=== PATIENT | female | born 1985 | race Two or more races ===

== ENCOUNTER 2020-05-31 13:07 | Emergency (ER) | payer MEDICAID ==
[~2020-05-31] VITALS: Ht 157.5 cm; Wt 45.4 kg
[2020-05-31] MEDS ORDERED: SODIUM CHLORIDE 0.9% 1,000 ML IV ONE ×2 (13:45)
[2020-05-31 14:20] LABS: Basophils # (auto) 0.1 10 ^3/uL (0-0.2); Basophils % (auto) 0.7 % (0.0-2.0); Eosinophils # (auto) 0.1 10 ^3/uL (0-0.8); Eosinophils % (auto) 0.9 % (0.0-7.0); Hematocrit 40.5 % (36.0-46.0); Hemoglobin 13.4 g/dL (12.2-16.2); Lymphocytes # (auto) 0.9 10 ^3/uL (0.4-5.4); Lymphocytes % (auto) 10.8 % (10.0-50.0); Mean Corpuscular Hemoglobin 29.1 pg (28.0-32.0); Mean Corpuscular Volume 88.2 fL (80.0-100.0); Monocytes % (auto) 12.5 % (0.0-12.0); Neutrophils # (auto) 5.9 10 ^3/uL (1.6-8.6); Neutrophils % (auto) 75.1 % (37.0-80.0); Nucleated Red Blood Cells % 0.2 %; Platelet Count (auto) 281 10^3/uL (140-450); Red Blood Cells 4.59 10^6/uL (4.0-5.20); Red Cell Distribution Width 18.7 % (11.8-14.3); White Blood Cell 7.9 10^3/uL (4.4-10.8)
[2020-05-31 14:36] LABS: Albumin 4.7 g/dL (3.4-5.0); BUN/Creatinine Ratio 7.1; Calcium 10.1 mg/dL (8.5-10.1); Potassium 3.1 mmol/L (3.5-5.1)
[2020-05-31 14:48] LABS: Bilirubin, Total 0.7 mg/dL (0.2-1.0); Total Protein 9.5 g/dL (6.4-8.2)
[2020-05-31] MEDS ORDERED: POTASSIUM EFFERVESENT TAB 25 MEQ PO ONE (15:00)
[2020-05-31] MEDS ORDERED: ONDANSETRON HCL 4 MG/2 ML VIAL ONE (15:04)
[2020-05-31] MEDS ORDERED: ONDANSETRON HCL 4 MG/2 ML VIAL IV ONE (15:15)
[2020-05-31 16:45] LABS: Urine Bacteria FEW /hpf (None Seen); Urine Blood 3+ /uL (Negative); Urine Hyaline Cast MANY /lpf (0 - 2); Urine Mucus FEW (None Seen); Urine WBC 318 /hpf (0 - 5); Urine WBC Clumps PRESENT /hpf (None Seen)
[2020-05-31 18:06] LABS: Amphetamine Screen, Urine NEGATIVE (NEGATIVE); Barbiturate Scree,Urine NEGATIVE (NEGATIVE); Benzodiazephine Screen, Urine NEGATIVE (NEGATIVE); Cannabinoid Screen, Urine NEGATIVE (NEGATIVE); Cocaine Screen, Urine NEGATIVE (NEGATIVE); Opiate Scree,Urine NEGATIVE (NEGATIVE); Phencyclidine Screen, Urine NEGATIVE (NEGATIVE)
[2020-05-31 18:11] VITALS: BP 105/76
== END 2020-05-31 18:44 | disposition home or self-care (01) ==
LOC: ER 13:07
DX: K52.9 Noninfective gastroenteritis and colitis, unspecified (principal); N39.0 Urinary tract infection, site not specified; E87.6 Hypokalemia; E86.0 Dehydration
CPT/HCPCS: 36415; 74176; 80053; 80307; 80320; 81001; 85025; 96361; 96374; 99284; J2405

== ENCOUNTER 2020-07-15 20:03 | Inpatient (IN) | payer MEDICAID ==
[~2020-07-15] VITALS: Ht 157.5 cm; Wt 50.2 kg
[2020-07-15] MEDS ORDERED: ONDANSETRON HCL 4 MG/2 ML VIAL IV ONE (20:45)
[2020-07-15] MEDS ORDERED: SODIUM CHLORIDE 0.9% 1,000 ML IV ONE (20:45)
[2020-07-15 22:09] LABS: Eosinophils # (auto) 0.1 10 ^3/uL (0-0.8); Hemoglobin 11.3 g/dL (12.2-16.2); Lymphocytes # (auto) 1.7 10 ^3/uL (0.4-5.4); Mean Corpuscular Hgb Conc. 32.4 g/dL (32.0-36.0)
[2020-07-15 22:11] LABS: Basophils # (auto) 0 10 ^3/uL (0-0.2); Basophils % (auto) 0.3 % (0.0-2.0); Eosinophils % (auto) 0.9 % (0.0-7.0); Hematocrit 34.8 % (36.0-46.0); Lymphocytes % (auto) 14.5 % (10.0-50.0); Mean Corpuscular Hemoglobin 27.9 pg (28.0-32.0); Mean Corpuscular Volume 86.2 fL (80.0-100.0); Monocytes % (auto) 8.2 % (0.0-12.0); Neutrophils # (auto) 8.8 10 ^3/uL (1.6-8.6); Neutrophils % (auto) 76.1 % (37.0-80.0); Nucleated Red Blood Cells % 0.3 %; Platelet Count (auto) 498 10^3/uL (140-450); Red Blood Cells 4.03 10^6/uL (4.0-5.20); White Blood Cell 11.6 10^3/uL (4.4-10.8)
[2020-07-15 22:16] LABS: Red Cell Distribution Width 21.5 % (11.8-14.3)
[2020-07-15 22:37] LABS: Albumin 3.3 g/dL (3.4-5.0); BUN/Creatinine Ratio 16.3; Bilirubin, Total 1.4 mg/dL (0.2-1.0); Total Protein 8.7 g/dL (6.4-8.2)
[2020-07-15 22:42] LABS: Potassium 2.5 mmol/L (3.5-5.1)
[2020-07-16] MEDS ORDERED: SODIUM CHLORIDE 0.9% 1,000 ML IV ONE
[2020-07-16] MEDS ORDERED: IOHEXOL 300 MG/ML 100ML BOTTLE IJ ONE (00:10)
[2020-07-16] MEDS ORDERED: POTASSIUM CHL 20MEQ/100ML 100 ML IV ONE (00:15)
[2020-07-16] MEDS ORDERED: POTASSIUM EFFERVESENT TAB 25 MEQ PO ONE (00:15)
[2020-07-16] MEDS ORDERED: DOXYCYCLINE 100MG/250ML 250 ML IV ONE (02:15)
[2020-07-16] MEDS ORDERED: DexAMETHasone SOD PHOS 10MG/1ML VIAL INJ IV ONE (02:15)
[2020-07-16 03:12] LABS: Urine Bacteria FEW /hpf (None Seen); Urine Blood Negative /uL (Negative); Urine Hyaline Cast FEW /lpf (0 - 2); Urine Specific Gravity 1.036 (1.001-1.035); Urine WBC 36 /hpf (0 - 5)
[2020-07-16 06:22] LABS: Lactic Acid w/Reflex 2.5 mmol/L (0.4-2.0)
[2020-07-16 06:32] LABS: Lipase 45 U/L (73-393)
[2020-07-16] MEDS ORDERED: NITROGLYCERIN 0.4 MG SL TAB SL PRN (06:45)
[2020-07-16] MEDS ORDERED: ONDANSETRON HCL 4 MG/2 ML VIAL IV PRN (06:45)
[2020-07-16] MEDS ORDERED: MORPHINE SULF INJ 2 MG/ML SYRINGE 1ML IV PRN (06:45)
[2020-07-16] MEDS ORDERED: TEMAZEPAM 15 MG CAP PO PRN (06:45)
[2020-07-16] MEDS ORDERED: SODIUM CHLORIDE 0.9% 1,000 ML IV SCH (06:45)
[2020-07-16] MEDS ORDERED: SODIUM CHLORIDE 0.9% 500 ML IV ONE (06:45)
[2020-07-16 07:39] LABS: Alcohol, Urine < 3.0 mg/dL (0-10); Amphetamine Screen, Urine NEGATIVE (NEGATIVE); Barbiturate Scree,Urine NEGATIVE (NEGATIVE); Benzodiazephine Screen, Urine NEGATIVE (NEGATIVE); Cannabinoid Screen, Urine NEGATIVE (NEGATIVE); Cocaine Screen, Urine NEGATIVE (NEGATIVE); Opiate Scree,Urine NEGATIVE (NEGATIVE); Phencyclidine Screen, Urine NEGATIVE (NEGATIVE)
[2020-07-16] MEDS ORDERED: cefTRIAXone 1GM/50ML D5W 50 ML IV SCH (09:00)
[2020-07-16 09:30] VITALS: BP 134/90
[2020-07-16] MEDS ORDERED: FAMOTIDINE 20 MG TAB PO SCH (10:00)
[2020-07-16 13:00] VITALS: BP 138/92
[2020-07-16] MEDS: SODIUM CHLORIDE 0.9% 1,000 ML IV SCH (14:45)
[2020-07-16] MEDS ORDERED: PANTOPRAZOLE 40 MG/10 ML VIAL INJ IV ONE (14:45)
[2020-07-16 14:53] VITALS: BP 138/92
[2020-07-16 15:24] LABS: BUN/Creatinine Ratio 14.9; Calcium 7.3 mg/dL (8.5-10.1); Potassium 3.1 mmol/L (3.5-5.1)
[2020-07-16] MEDS ORDERED: NICOTINE 14 MG/24HR TOPICAL PATCH TD ONE (15:30)
[2020-07-16 16:58] VITALS: BP 139/98
[2020-07-16 20:00] VITALS: BP 138/99
[2020-07-16] MEDS: PANTOPRAZOLE 40 MG/10 ML VIAL INJ IV SCH (21:26)
[2020-07-16 22:00] VITALS: BP 138/99
[2020-07-17 05:00] VITALS: BP 133/96
[2020-07-17] MEDS: SODIUM CHLORIDE 0.9% 1,000 ML IV SCH (05:03)
[2020-07-17 06:22] LABS: Basophils # (auto) 0 10 ^3/uL (0-0.2); Basophils % (auto) 0.1 % (0.0-2.0); Eosinophils # (auto) 0.1 10 ^3/uL (0-0.8); Eosinophils % (auto) 0.5 % (0.0-7.0); Monocytes # (auto) 1.1 10 ^3/uL (0-1.3)
[2020-07-17 06:25] LABS: Hematocrit 23.9 % (36.0-46.0); Hemoglobin 7.9 g/dL (12.2-16.2); Lymphocytes # (auto) 2.2 10 ^3/uL (0.4-5.4); Lymphocytes % (auto) 20.7 % (10.0-50.0); Mean Corpuscular Hemoglobin 28.6 pg (28.0-32.0); Mean Corpuscular Hgb Conc. 32.9 g/dL (32.0-36.0); Mean Corpuscular Volume 86.9 fL (80.0-100.0); Monocytes % (auto) 9.9 % (0.0-12.0); Neutrophils # (auto) 7.4 10 ^3/uL (1.6-8.6); Neutrophils % (auto) 68.8 % (37.0-80.0); Nucleated Red Blood Cells % 0.1 %; Platelet Count (auto) 376 10^3/uL (140-450); Red Blood Cells 2.76 10^6/uL (4.0-5.20); White Blood Cell 10.7 10^3/uL (4.4-10.8)
[2020-07-17 06:27] LABS: Red Cell Distribution Width 21.4 % (11.8-14.3)
[2020-07-17 06:53] LABS: Albumin 2.4 g/dL (3.4-5.0); Bilirubin, Total 1.1 mg/dL (0.2-1.0); Calcium 7.5 mg/dL (8.5-10.1); Magnesium 1.2 mg/dL (1.6-2.6); Total Protein 6.1 g/dL (6.4-8.2)
[2020-07-17 06:55] LABS: Potassium 2.8 mmol/L (3.5-5.1)
[2020-07-17 09:00] VITALS: BP 136/94
[2020-07-17] MEDS: NICOTINE 14 MG/24HR TOPICAL PATCH TD SCH (10:00)
[2020-07-17] MEDS: PANTOPRAZOLE 40 MG/10 ML VIAL INJ IV SCH ×2 (10:00→21:36)
[2020-07-17] MEDS: POTASSIUM CHL 20 Meq TABLET PO SCH ×2 (11:55→13:15)
[2020-07-17] MEDS: ACETAMINOPHEN 325 MG TAB PO PRN (11:56)
[2020-07-17 12:30] VITALS: BP 143/96
[2020-07-17] MEDS: MAGNESIUM SULFATE 1GM/100ML 100 ML IV SCH ×4 (14:00→21:03)
[2020-07-17] MEDS ORDERED: MULTIPLE VITAMINS W/ MINERALS TAB PO ONE (14:00)
[2020-07-17] MEDS ORDERED: THIAMINE HCL 100 MG TAB PO ONE (14:00)
[2020-07-17] MEDS ORDERED: METOCLOPRAMIDE HCL 5MG/ml INJ 2ml VIAL IV ONE (14:15)
[2020-07-17] MEDS ORDERED: LIDOCAINE VISCOUS 2% 15ML UD ONE (16:18)
[2020-07-17] MEDS: diphenhdrAMINE HCL 50 MG/1 ML VL ONE ×2 (16:24→16:27)
[2020-07-17] MEDS: fentaNYL CITRATE 100 MCG/2 ML VL ONE ×2 (16:24→16:27)
[2020-07-17] MEDS: MIDAZOLAM HCL 5 MG/ML-1ML VIAL ONE ×3 (16:24→16:30)
[2020-07-17] MEDS: NYSTATIN (MOUTH-THROAT) 500,000 UNITS/5 ML SUSP MT SCH ×2 (18:30→21:37)
[2020-07-17] MEDS: METOCLOPRAMIDE HCL 5MG/ml INJ 2ml VIAL IV SCH (21:36)
[2020-07-17 22:00] VITALS: BP 132/87
[2020-07-17] MEDS ORDERED: POTASSIUM CHL 20 Meq TABLET PO SCH (22:00)
[2020-07-18] MEDS: ACETAMINOPHEN 325 MG TAB PO PRN ×2 (01:33→11:30)
[2020-07-18 05:00] VITALS: BP 133/90
[2020-07-18] MEDS: NYSTATIN (MOUTH-THROAT) 500,000 UNITS/5 ML SUSP MT SCH ×4 (05:56→22:27)
[2020-07-18] MEDS: METOCLOPRAMIDE HCL 5MG/ml INJ 2ml VIAL IV SCH ×3 (05:56→22:27)
[2020-07-18 08:00] VITALS: BP 144/98
[2020-07-18 09:00] VITALS: BP 144/98
[2020-07-18] MEDS: PANTOPRAZOLE 40 MG/10 ML VIAL INJ IV SCH ×2 (09:18→22:27)
[2020-07-18] MEDS: THIAMINE HCL 100 MG TAB PO SCH (09:18)
[2020-07-18] MEDS: MULTIPLE VITAMINS W/ MINERALS TAB PO SCH (09:19)
[2020-07-18] MEDS: NICOTINE 14 MG/24HR TOPICAL PATCH TD SCH (09:19)
[2020-07-18 09:24] LABS: Hematocrit 26.8 % (36.0-46.0); Hemoglobin 8.6 g/dL (12.2-16.2)
[2020-07-18 09:41] LABS: Magnesium 1.6 mg/dL (1.6-2.6)
[2020-07-18 09:43] LABS: Bilirubin, Total 1.1 mg/dL (0.2-1.0)
[2020-07-18] MEDS ORDERED: POTASSIUM CHL 20 Meq TABLET PO SCH ×2 (10:00→22:00)
[2020-07-18] MEDS: MAGNESIUM OXIDE 400 MG TAB PO SCH ×2 (10:07→22:27)
[2020-07-18] MEDS ORDERED: MAGNESIUM SULFATE 1GM/100ML 100 ML IV ONE (10:15)
[2020-07-18] MEDS ORDERED: POTASSIUM CHL 20 Meq TABLET PO ONE (10:15)
[2020-07-18 10:34] LABS: Hepatitis B Surface Antibody Positive
[2020-07-18 11:13] LABS: Hepatitis A Total Antibody Positive
[2020-07-18 11:48] LABS: Hepatitis B Core Total AB Negative; Hepatitis B Surface Antigen Negative (Negative)
[2020-07-18 11:52] LABS: Hepatitis C Antibody Negative (Negative)
[2020-07-18 13:00] VITALS: BP 139/98
[2020-07-18] MEDS: FLUCONAZOLE 200MG/100ML 100 ML IV SCH ×2 (13:51→17:15)
[2020-07-18] MEDS: HYDROcodone-ACET 5/325MG TAB PO PRN (15:00)
[2020-07-18 16:22] LABS: Folate (Folic Acid) 5.06 ng/mL (5.38-24)
[2020-07-18 17:00] VITALS: BP 143/99
[2020-07-18] MEDS ORDERED: FLUCONAZOLE 200MG/100ML 100 ML IV SCH (18:00)
[2020-07-18 22:00] VITALS: BP 130/90
[2020-07-18] MEDS: GABAPENTIN 300 MG CAP PO SCH (22:27)
[2020-07-19 04:38] VITALS: BP 107/79
[2020-07-19] MEDS: HYDROcodone-ACET 5/325MG TAB PO PRN ×2 (04:43→08:34)
[2020-07-19 05:23] LABS: Hemoglobin 8.2 g/dL (12.2-16.2)
[2020-07-19 05:26] LABS: Hematocrit 25.9 % (36.0-46.0)
[2020-07-19 05:34] LABS: Magnesium 1.7 mg/dL (1.6-2.6); Potassium 5.2 mmol/L (3.5-5.1)
[2020-07-19] MEDS: NYSTATIN (MOUTH-THROAT) 500,000 UNITS/5 ML SUSP MT SCH ×2 (05:50→11:33)
[2020-07-19] MEDS: GABAPENTIN 300 MG CAP PO SCH ×2 (05:50→15:11)
[2020-07-19] MEDS: METOCLOPRAMIDE HCL 5MG/ml INJ 2ml VIAL IV SCH ×2 (05:50→15:11)
[2020-07-19] MEDS ORDERED: MAGNESIUM SULFATE 1GM/100ML 100 ML IV ONE (08:30)
[2020-07-19] MEDS ORDERED: FOLIC ACID 1 MG TAB PO ONE (08:30)
[2020-07-19 09:00] VITALS: BP 115/82
[2020-07-19] MEDS ORDERED: NIC21P TOP (09:23)
[2020-07-19] MEDS ORDERED: PANT40TA2 PO (09:23)
[2020-07-19] MEDS ORDERED: MULT-351 PO (09:23)
[2020-07-19] MEDS ORDERED: GABA300C10 PO (09:23)
[2020-07-19] MEDS ORDERED: NYS5LQ MT (09:23)
[2020-07-19] MEDS ORDERED: FOLI1TAB6 PO (09:23)
[2020-07-19] MEDS ORDERED: MAGN400T40 PO (09:23)
[2020-07-19] MEDS ORDERED: FLUC200T35 PO (09:23)
[2020-07-19] MEDS: NICOTINE 14 MG/24HR TOPICAL PATCH TD SCH (10:00)
[2020-07-19] MEDS ORDERED: FLUCONAZOLE 200MG/100ML 100 ML IV SCH (10:00)
[2020-07-19] MEDS: FLUCONAZOLE 200MG/100ML 100 ML IV SCH ×2 (10:01→11:28)
[2020-07-19] MEDS: MAGNESIUM OXIDE 400 MG TAB PO SCH (10:02)
[2020-07-19] MEDS: PANTOPRAZOLE 40 MG/10 ML VIAL INJ IV SCH (10:04)
[2020-07-19] MEDS: MULTIPLE VITAMINS W/ MINERALS TAB PO SCH (10:06)
[2020-07-19] MEDS: THIAMINE HCL 100 MG TAB PO SCH (10:07)
[2020-07-19 13:00] VITALS: BP 114/88
[2020-07-19 14:51] VITALS: BP 114/88
[2020-07-19 16:45] VITALS: BP 109/72
== END 2020-07-19 18:05 | disposition home or self-care (01) | DRG 241 ==
LOC: ER 20:04 → TELE 20:05 → TELE-EAST 07-16 09:21
PROVIDERS: ADMIT Nurse Practitioner; ATTEND Internal Medicine
PROC: 0DB88ZX Excision of Small Intestine, Via Natural or Artificial Opening Endoscopic, Diagnostic (ICD-10-PCS; 2020-07-17)
PROC: 0DB68ZX Excision of Stomach, Via Natural or Artificial Opening Endoscopic, Diagnostic (ICD-10-PCS; 2020-07-17)
PROC: 0DB58ZX Excision of Esophagus, Via Natural or Artificial Opening Endoscopic, Diagnostic (ICD-10-PCS; principal; 2020-07-17 16:20)
DX: K29.70 Gastritis, unspecified, without bleeding (principal); B37.0 Candidal stomatitis; B37.81 Candidal esophagitis; E87.6 Hypokalemia; E87.1 Hypo-osmolality and hyponatremia; F10.10 Alcohol abuse, uncomplicated; R65.10 Systemic inflammatory response syndrome (SIRS) of non-infectious origin without acute organ dysfunction; E83.42 Hypomagnesemia; F17.210 Nicotine dependence, cigarettes, uncomplicated; F12.90 Cannabis use, unspecified, uncomplicated; K44.9 Diaphragmatic hernia without obstruction or gangrene; Z20.828 Contact with and (suspected) exposure to other viral communicable diseases; Z82.49 Family history of ischemic heart disease and other diseases of the circulatory system; D64.9 Anemia, unspecified
CPT/HCPCS: 36415; 71045; 71275; 74176; 80048; 80053; 80061; 80307; 81001; 82247; 82607; 82746; 83036; 83540; 83550; 83605; 83615; 83690; 83735; 83880; 84132; 84443; 84484; 84702; 85014; 85018; 85025; 85379; 86703; 86704; 86706; 86708; 86803; 87040; 87086; 87340; 87426; 93005; 93306; 93926; 93970; C9113; G0378; J0696; J1100; J1450; J2250; J3480; J3490

== ENCOUNTER 2020-10-26 11:29 | Inpatient (IN) | payer MEDICAID ==
[~2020-10-26] VITALS: Ht 157.5 cm; Wt 62.6 kg
[~2020-10-26 11:29] MED LIST: FLUC200T35 PO; FOLI1TAB6 PO; GABA300C10 PO; MAGN400T40 PO; MULT-351 PO; NIC21P TOP; NYS5LQ MT; PANT40TA2 PO
[2020-10-26 12:14] LABS: Hematocrit 15.6 % (36.0-46.0); Mean Corpuscular Hgb Conc. 31.4 g/dL (32.0-36.0); Mean Corpuscular Volume 85.8 fL (80.0-100.0); Red Blood Cells 1.82 10^6/uL (4.0-5.20); Red Cell Distribution Width 16.4 % (11.8-14.3); White Blood Cell 28.3 10^3/uL (4.4-10.8)
[2020-10-26 12:19] LABS: Basophils % (manual) 0 (0.0-2.0); Blast Cells 0; Eosinophils % (manual) 0 (0-7); Myelocytes % 0; Promyelocytes % 0; Reactive Lymphocytes 0
[2020-10-26 12:27] LABS: Albumin 1.8 g/dL (3.4-5.0); Anion Gap 18 (5-15); Blood Alcohol < 3.0 mg/dL (0-5); Blood Urea Nitrogen 53 mg/dL (7-18); Calcium 8.3 mg/dL (8.5-10.1); Carbon Dioxide 26 mmol/L (21-32); Chloride 88 mmol/L (98-107); Glucose 124 mg/dL (74-106); Magnesium 2.3 mg/dL (1.6-2.6); Sodium 132 mmol/L (136-145)
[2020-10-26 12:28] LABS: INR 2.33 (0.9-1.15); Partial Thromboplastin Time 33.3 sec (23.0-31.2)
[2020-10-26 12:30] LABS: Band Neutrophils % (manual) 7; Lymphocytes % (manual) 9 (10.0-50.0); Metamyelocytes % 1; Monocytes % (manual) 7 (0-12)
[2020-10-26] MEDS ORDERED: SODIUM CHLORIDE 0.9% 1,000 ML IVB ONE (12:30)
[2020-10-26] MEDS ORDERED: PANTOPRAZOLE 40 MG/10 ML VIAL INJ IV ONE (12:30)
[2020-10-26 12:33] LABS: Alanine Aminotransferase 26 U/L (13-56); Alkaline Phosphatase 351 U/L (45-117); Aspartate Aminotransferase 126 U/L (15-37); BUN/Creatinine Ratio 34.6; Bilirubin, Total 9.4 mg/dL (0.2-1.0); GFR African American 50 mL/min; GFR Non-African American 42 mL/min; Total Protein 7.5 g/dL (6.4-8.2)
[2020-10-26 12:39] LABS: Potassium 2.6 mmol/L (3.5-5.1)
[2020-10-26 12:41] LABS: Amylase 58 U/L (25-115); Lipase 34 U/L (73-393)
[2020-10-26 13:00] LABS: Lactic Acid w/Reflex 12.6 mmol/L (0.4-2.0)
[2020-10-26] MEDS ORDERED: POTASSIUM CHL 20MEQ/100ML 100 ML IV SCH (13:15)
[2020-10-26] MEDS ORDERED: cefTRIAXone 1GM/50ML D5W 50 ML IV ONE (13:45)
[2020-10-26] MEDS ORDERED: POTASSIUM CHLORIDE 20 MEQ, LIDOCAINE 1% (LOCAL ANESTH.) 2 ML in SODIUM CHL 0.9% 100 ML IV SCH (14:00)
[2020-10-26] MEDS ORDERED: POTASSIUM CHLORIDE 40 MEQ, LIDOCAINE 1% (LOCAL ANESTH.) 4 ML in SODIUM CHL 0.9% 250 ML IV ONE (14:15)
[2020-10-26] MEDS ORDERED: SODIUM CHLORIDE 0.9% 1,000 ML IV ONE (14:15)
[2020-10-26] MEDS ORDERED: POTASSIUM CHLORIDE 20 MEQ, LIDOCAINE 1% (LOCAL ANESTH.) 2 ML in SODIUM CHL 0.9% 100 ML IV ONE ×2 (15:00→16:59)
[2020-10-26] MEDS ORDERED: D5W 5% INJ ONE ×2 (15:04→16:00)
[2020-10-26] MEDS ORDERED: FOLIC ACID INJ ONE ×2 (15:04→16:00)
[2020-10-26 15:09] VITALS: BP 88/45
[2020-10-26] MEDS: SOD CHL 0.9%/ KCL 40MEQ 1,000 ML IV SCH (15:12)
[2020-10-26] MEDS: PANTOPRAZOLE 40mg/50ML NS AE 50 ML IV SCH ×2 (15:41→16:14)
[2020-10-26] MEDS: metroNIDAZOLE 500MG/100ML 100 ML IV SCH ×2 (15:42→22:27)
[2020-10-26] MEDS ORDERED: THIAMINE INJ ONE (16:00)
[2020-10-26 18:28] VITALS: BP 88/51
[2020-10-26 21:15] VITALS: BP 92/53
[2020-10-26 21:18] VITALS: BP 91/54
[2020-10-26 21:59] VITALS: BP 99/58
[2020-10-27] MEDS: PANTOPRAZOLE 40mg/50ML NS AE 50 ML IV SCH ×5 (01:30→21:16)
[2020-10-27] MEDS: SOD CHL 0.9%/ KCL 40MEQ 1,000 ML IV SCH ×3 (01:46→21:15)
[2020-10-27] MEDS: metroNIDAZOLE 500MG/100ML 100 ML IV SCH ×3 (06:25→21:31)
[2020-10-27 07:08] LABS: White Blood Cell 25.7 10^3/uL (4.4-10.8)
[2020-10-27 07:10] LABS: Mean Corpuscular Hemoglobin 28.9 pg (28.0-32.0); Mean Corpuscular Hgb Conc. 33.2 g/dL (32.0-36.0); Red Blood Cells 2.77 10^6/uL (4.0-5.20); Red Cell Distribution Width 14.9 % (11.8-14.3)
[2020-10-27 07:12] LABS: Basophils % (manual) 0 (0.0-2.0); Blast Cells 0; Metamyelocytes % 0; Promyelocytes % 0; Reactive Lymphocytes 0
[2020-10-27 07:23] LABS: Albumin 1.4 g/dL (3.4-5.0); BUN/Creatinine Ratio 62.5; Calcium 6.9 mg/dL (8.5-10.1); Magnesium 1.8 mg/dL (1.6-2.6)
[2020-10-27 07:25] LABS: Bilirubin, Total 8.5 mg/dL (0.2-1.0); Total Protein 5.9 g/dL (6.4-8.2)
[2020-10-27 08:18] LABS: INR 1.84 (0.9-1.15); Partial Thromboplastin Time 36.6 sec (23.0-31.2)
[2020-10-27 08:24] LABS: Band Neutrophils % (manual) 7; Eosinophils % (manual) 4 (0-7); Lymphocytes % (manual) 8 (10.0-50.0); Monocytes % (manual) 6 (0-12); Myelocytes % 2
[2020-10-27] MEDS: cefTRIAXone 1GM/50ML D5W 50 ML IV SCH (09:00)
[2020-10-27] MEDS: LORazepam 2MG/ML-1ML VIAL IV PRN (09:24)
[2020-10-27] MEDS ORDERED: POTASSIUM CHLORIDE 40 MEQ, LIDOCAINE 1% (LOCAL ANESTH.) 4 ML in SODIUM CHL 0.9% 250 ML IV ONE (09:30)
[2020-10-27 11:49] LABS: Hemoglobin 4.9 g/dL (12.2-16.2)
[2020-10-27] MEDS ORDERED: FOLIC ACID 1 MG, MAGNESIUM SULF SDV 50% 8 MEQ, THIAMINE INJ 100 MG in D5W 5% 1,000 ML INJ SCH (12:00)
[2020-10-27 15:08] LABS: Potassium 4.5 mmol/L (3.5-5.1)
[2020-10-27 15:11] LABS: Magnesium 1.8 mg/dL (1.6-2.6)
[2020-10-27 18:56] LABS: Hematocrit 11.7 % (36.0-46.0)
[2020-10-27 19:06] LABS: Hemoglobin 3.8 g/dL (12.2-16.2)
[2020-10-27 20:15] LABS: Hemoglobin 8.2 g/dL (12.2-16.2)
[2020-10-27 20:17] LABS: Mean Corpuscular Hemoglobin 28.6 pg (28.0-32.0); Mean Corpuscular Hgb Conc. 32.6 g/dL (32.0-36.0); Mean Corpuscular Volume 87.8 fL (80.0-100.0); Red Blood Cells 2.85 10^6/uL (4.0-5.20); Red Cell Distribution Width 15.4 % (11.8-14.3); White Blood Cell 22.6 10^3/uL (4.4-10.8)
[2020-10-27 20:18] LABS: Basophils % (manual) 0 (0.0-2.0); Blast Cells 0; Eosinophils % (manual) 0 (0-7); Promyelocytes % 0; Reactive Lymphocytes 0
[2020-10-27 21:34] LABS: Band Neutrophils % (manual) 8; Lymphocytes % (manual) 12 (10.0-50.0); Metamyelocytes % 1; Monocytes % (manual) 4 (0-12); Myelocytes % 1
[2020-10-27] MEDS: MAGNESIUM SULFATE 1GM/100ML 100 ML IV SCH (23:00)
[2020-10-28] VITALS (22 sets, daily range): BP systolic 93–107; BP diastolic 58–73
[2020-10-28] MEDS: PANTOPRAZOLE 40mg/50ML NS AE 50 ML IV SCH ×2 (03:21→06:51)
[2020-10-28] MEDS: metroNIDAZOLE 500MG/100ML 100 ML IV SCH ×3 (06:52→22:21)
[2020-10-28] MEDS: SOD CHL 0.9%/ KCL 40MEQ 1,000 ML IV SCH ×2 (06:52→17:00)
[2020-10-28 07:17] LABS: Hemoglobin 7.6 g/dL (12.2-16.2)
[2020-10-28 07:19] LABS: Hematocrit 22.8 % (36.0-46.0); Mean Corpuscular Hgb Conc. 33.2 g/dL (32.0-36.0); Mean Corpuscular Volume 87.5 fL (80.0-100.0); Red Blood Cells 2.61 10^6/uL (4.0-5.20)
[2020-10-28 07:21] LABS: Basophils % (manual) 0 (0.0-2.0); Blast Cells 0; Myelocytes % 0; Promyelocytes % 0; Reactive Lymphocytes 0
[2020-10-28 07:57] LABS: Band Neutrophils % (manual) 11; Eosinophils % (manual) 5 (0-7); Lymphocytes % (manual) 6 (10.0-50.0); Metamyelocytes % 1; Monocytes % (manual) 6 (0-12)
[2020-10-28] MEDS: cefTRIAXone 1GM/50ML D5W 50 ML IV SCH (08:18)
[2020-10-28] MEDS ORDERED: LACTATED RINGER'S 1,000 ML IV SCH (10:30)
[2020-10-28] MEDS: NICOTINE 21MG/24 HR TOPICAL PATCH TD SCH (10:30)
[2020-10-28] MEDS ORDERED: IOHEXOL 350 MG/ML 100ML IJ ONE (10:31)
[2020-10-28 11:27] LABS: INR 1.94 (0.9-1.15)
[2020-10-28 12:19] LABS: Hemoglobin 7.2 g/dL (12.2-16.2)
[2020-10-28 12:21] LABS: Hematocrit 22.4 % (36.0-46.0); Mean Corpuscular Hemoglobin 28.6 pg (28.0-32.0); Mean Corpuscular Hgb Conc. 32.3 g/dL (32.0-36.0); Mean Corpuscular Volume 88.7 fL (80.0-100.0); Red Blood Cells 2.53 10^6/uL (4.0-5.20); White Blood Cell 26.2 10^3/uL (4.4-10.8)
[2020-10-28 12:25] LABS: Basophils % (manual) 0 (0.0-2.0)
[2020-10-28 12:26] LABS: Blast Cells 0; Myelocytes % 0; Promyelocytes % 0; Reactive Lymphocytes 0
[2020-10-28 12:40] LABS: Band Neutrophils % (manual) 6; Eosinophils % (manual) 4 (0-7); Lymphocytes % (manual) 5 (10.0-50.0); Metamyelocytes % 2; Monocytes % (manual) 9 (0-12)
[2020-10-28] MEDS ORDERED: FOLIC ACID 1 MG, MULTIPLE VITAMIN 10 ML, MAGNESIUM SULF SDV 50% 8 MEQ, THIAMINE INJ 100... INJ SCH ×5 (13:00)
[2020-10-28 13:45] LABS: Hemoglobin 7.8 g/dL (12.2-16.2)
[2020-10-28 13:58] LABS: INR 1.97 (0.9-1.15)
[2020-10-28 14:06] LABS: Albumin 1.5 g/dL (3.4-5.0); Anion Gap 5 (5-15); Blood Urea Nitrogen 12 mg/dL (7-18); Calcium 7.4 mg/dL (8.5-10.1); Carbon Dioxide 23 mmol/L (21-32); Chloride 109 mmol/L (98-107); Glucose 104 mg/dL (74-106); Magnesium 1.5 mg/dL (1.6-2.6); Potassium 4.6 mmol/L (3.5-5.1); Sodium 137 mmol/L (136-145)
[2020-10-28 14:11] LABS: Alanine Aminotransferase 21 U/L (13-56); Alkaline Phosphatase 319 U/L (45-117); Aspartate Aminotransferase 99 U/L (15-37); BUN/Creatinine Ratio 26.1; Bilirubin, Total 9.8 mg/dL (0.2-1.0); GFR African American 201 mL/min; GFR Non-African American 166 mL/min; Total Protein 5.8 g/dL (6.4-8.2)
[2020-10-28 14:15] LABS: Phosphorus < 0.1 mg/dL (2.5-4.90)
[2020-10-28] MEDS: methylPREDNISolone SOD SUCC 40 MG/ML VL IV SCH ×2 (14:46→22:21)
[2020-10-28 16:15] LABS: Alcohol, Urine < 3.0 mg/dL (0-10); Amphetamine Screen, Urine NEGATIVE (NEGATIVE); Barbiturate Scree,Urine NEGATIVE (NEGATIVE); Benzodiazephine Screen, Urine NEGATIVE (NEGATIVE); Cannabinoid Screen, Urine NEGATIVE (NEGATIVE); Cocaine Screen, Urine NEGATIVE (NEGATIVE); Opiate Scree,Urine NEGATIVE (NEGATIVE); Phencyclidine Screen, Urine NEGATIVE (NEGATIVE)
[2020-10-28 16:18] LABS: Urine Bacteria NONE SEEN /hpf (None Seen); Urine Blood Negative /uL (Negative); Urine WBC 3 /hpf (0 - 5)
[2020-10-28] MEDS ORDERED: SODIUM PHOSPHATES 40 MEQ in D5W 5% 250 ML IV ONE (16:30)
[2020-10-28 16:44] LABS: Urine Specific Gravity > 1.050 (1.001-1.035)
[2020-10-28] MEDS: MORPHINE SULFATE INJECTION 2 MG/ML SYRG IV PRN (18:10)
[2020-10-28] MEDS: MAGNESIUM SULFATE 1GM/100ML 100 ML IV SCH ×2 (20:00→20:25)
[2020-10-28] MEDS: PANTOPRAZOLE 40 MG/10 ML VIAL INJ IV SCH (22:21)
[2020-10-29] VITALS (93 sets, daily range): BP systolic 90–137; BP diastolic 60–98
[2020-10-29] MEDS: SOD CHL 0.9%/ KCL 40MEQ 1,000 ML IV SCH ×2 (02:15→11:03)
[2020-10-29] MEDS ORDERED: MAGNESIUM SULFATE 1GM/100ML 200 ML IV ONE (05:59)
[2020-10-29] MEDS: MAGNESIUM SULFATE 1GM/100ML 100 ML IV SCH (06:08)
[2020-10-29] MEDS: methylPREDNISolone SOD SUCC 40 MG/ML VL IV SCH ×3 (06:31→21:29)
[2020-10-29] MEDS: metroNIDAZOLE 500MG/100ML 100 ML IV SCH ×3 (06:31→21:29)
[2020-10-29 07:06] LABS: Hematocrit 32.5 % (36.0-46.0); Hemoglobin 10.7 g/dL (12.2-16.2); Mean Corpuscular Hemoglobin 28.6 pg (28.0-32.0); Mean Corpuscular Hgb Conc. 33.1 g/dL (32.0-36.0); Mean Corpuscular Volume 86.5 fL (80.0-100.0); Red Blood Cells 3.76 10^6/uL (4.0-5.20); Red Cell Distribution Width 15.4 % (11.8-14.3); White Blood Cell 24.8 10^3/uL (4.4-10.8)
[2020-10-29 07:11] LABS: Basophils % (manual) 0 (0.0-2.0); Blast Cells 0; Myelocytes % 0; Promyelocytes % 0; Reactive Lymphocytes 0
[2020-10-29 07:19] LABS: INR 1.89 (0.9-1.15)
[2020-10-29 07:29] LABS: Albumin 1.6 g/dL (3.4-5.0); Calcium 7.5 mg/dL (8.5-10.1); Magnesium 2.2 mg/dL (1.6-2.6); Potassium 3.7 mmol/L (3.5-5.1)
[2020-10-29 07:33] LABS: Bilirubin, Total 8.4 mg/dL (0.2-1.0); Phosphorus 2.9 mg/dL (2.5-4.90); Total Protein 5.8 g/dL (6.4-8.2)
[2020-10-29 07:34] LABS: Band Neutrophils % (manual) 8; Eosinophils % (manual) 1 (0-7); Lymphocytes % (manual) 6 (10.0-50.0); Metamyelocytes % 1; Monocytes % (manual) 9 (0-12)
[2020-10-29] MEDS: NICOTINE 21MG/24 HR TOPICAL PATCH TD SCH (08:24)
[2020-10-29] MEDS: PANTOPRAZOLE 40 MG/10 ML VIAL INJ IV SCH ×2 (08:24→21:29)
[2020-10-29] MEDS: cefTRIAXone 1GM/50ML D5W 50 ML IV SCH (09:00)
[2020-10-29] MEDS ORDERED: GOLYTELY 4L KIT PO ONE (09:45)
[2020-10-29] MEDS: FOLIC ACID 1 MG, MAGNESIUM SULF SDV 50% 8 MEQ, THIAMINE INJ 100 MG in SODIUM CHLORIDE 0... INJ SCH (12:30)
[2020-10-29 18:47] LABS: Hematocrit 25.3 % (36.0-46.0); Hemoglobin 8.3 g/dL (12.2-16.2)
[2020-10-30] VITALS (42 sets, daily range): BP systolic 94–138; BP diastolic 63–111
[2020-10-30] MEDS ORDERED: GOLYTELY 4L KIT PO ONE (06:00)
[2020-10-30] MEDS: metroNIDAZOLE 500MG/100ML 100 ML IV SCH ×3 (06:18→22:14)
[2020-10-30] MEDS: methylPREDNISolone SOD SUCC 40 MG/ML VL IV SCH ×3 (06:18→22:14)
[2020-10-30] MEDS: SOD CHL 0.9%/ KCL 40MEQ 1,000 ML IV SCH ×3 (06:20→18:15)
[2020-10-30 06:29] LABS: Hematocrit 33.3 % (36.0-46.0); Mean Corpuscular Hemoglobin 28.5 pg (28.0-32.0); Mean Corpuscular Volume 86.3 fL (80.0-100.0); Red Blood Cells 3.86 10^6/uL (4.0-5.20); Red Cell Distribution Width 15.7 % (11.8-14.3); White Blood Cell 29.1 10^3/uL (4.4-10.8)
[2020-10-30 06:33] LABS: Basophils % (manual) 0 (0.0-2.0); Blast Cells 0; Metamyelocytes % 0; Myelocytes % 0; Promyelocytes % 0; Reactive Lymphocytes 0
[2020-10-30 06:56] LABS: Potassium 4.2 mmol/L (3.5-5.1)
[2020-10-30 07:01] LABS: INR 1.86 (0.9-1.15)
[2020-10-30 07:05] LABS: Albumin 1.7 g/dL (3.4-5.0); BUN/Creatinine Ratio 32.3; Bilirubin, Total 7.2 mg/dL (0.2-1.0); Calcium 7.7 mg/dL (8.5-10.1); Total Protein 5.6 g/dL (6.4-8.2)
[2020-10-30 07:57] LABS: Band Neutrophils % (manual) 14; Eosinophils % (manual) 2 (0-7); Lymphocytes % (manual) 11 (10.0-50.0); Monocytes % (manual) 2 (0-12)
[2020-10-30] MEDS: cefTRIAXone 1GM/50ML D5W 50 ML IV SCH (07:58)
[2020-10-30] MEDS: NICOTINE 21MG/24 HR TOPICAL PATCH TD SCH (07:58)
[2020-10-30] MEDS: PANTOPRAZOLE 40 MG/10 ML VIAL INJ IV SCH ×2 (07:58→22:14)
[2020-10-30] MEDS ORDERED: PHYTONADIONE (VIT K)10 MG/ML 1ML VIAL IV ONE (09:30)
[2020-10-30] MEDS: FOLIC ACID 1 MG, MAGNESIUM SULF SDV 50% 8 MEQ, THIAMINE INJ 100 MG in SODIUM CHLORIDE 0... INJ SCH (15:07)
[2020-10-30] MEDS: MORPHINE SULFATE INJECTION 2 MG/ML SYRG IV PRN (22:38)
[2020-10-31] MEDS: SOD CHL 0.9%/ KCL 40MEQ 1,000 ML IV SCH ×2 (03:15→15:53)
[2020-10-31 05:14] VITALS: BP 126/93
[2020-10-31] MEDS: metroNIDAZOLE 500MG/100ML 100 ML IV SCH ×3 (05:40→21:54)
[2020-10-31] MEDS: methylPREDNISolone SOD SUCC 40 MG/ML VL IV SCH ×3 (05:40→21:54)
[2020-10-31 07:13] LABS: Hematocrit 33.3 % (36.0-46.0); Hemoglobin 10.7 g/dL (12.2-16.2); Mean Corpuscular Hemoglobin 28.7 pg (28.0-32.0); Mean Corpuscular Hgb Conc. 32.2 g/dL (32.0-36.0); Mean Corpuscular Volume 89.1 fL (80.0-100.0); Red Blood Cells 3.74 10^6/uL (4.0-5.20); Red Cell Distribution Width 16.7 % (11.8-14.3)
[2020-10-31 07:28] LABS: INR 1.62 (0.9-1.15); Partial Thromboplastin Time 29.5 sec (23.0-31.2)
[2020-10-31 07:29] LABS: Albumin 1.7 g/dL (3.4-5.0); Calcium 7.8 mg/dL (8.5-10.1); Potassium 4.8 mmol/L (3.5-5.1)
[2020-10-31 07:30] LABS: Basophils % (manual) 0 (0.0-2.0); Blast Cells 0; Eosinophils % (manual) 0 (0-7); Myelocytes % 0; Promyelocytes % 0; Reactive Lymphocytes 0
[2020-10-31 07:32] LABS: BUN/Creatinine Ratio 35.7; Bilirubin, Total 6.2 mg/dL (0.2-1.0); Total Protein 5.4 g/dL (6.4-8.2)
[2020-10-31] MEDS ORDERED: LIDOCAINE VISCOUS 2% 15ML UD ONE (08:37)
[2020-10-31] MEDS ORDERED: fentaNYL CITRATE 100 MCG/2 ML VL ONE (08:38)
[2020-10-31] MEDS ORDERED: MIDAZOLAM HCL 5 MG/ML-1ML VIAL ONE (08:38)
[2020-10-31] MEDS ORDERED: diphenhdrAMINE HCL 50 MG/1 ML VL ONE (08:38)
[2020-10-31 09:00] VITALS: BP 121/87
[2020-10-31] MEDS ORDERED: PHYTONADIONE (VIT K)10 MG/ML 1ML VIAL IV ONE (09:45)
[2020-10-31 09:57] LABS: Band Neutrophils % (manual) 29; Lymphocytes % (manual) 3 (10.0-50.0); Metamyelocytes % 1; Monocytes % (manual) 3 (0-12)
[2020-10-31] MEDS: NICOTINE 21MG/24 HR TOPICAL PATCH TD SCH (10:33)
[2020-10-31] MEDS: PANTOPRAZOLE 40 MG/10 ML VIAL INJ IV SCH ×2 (10:33→21:54)
[2020-10-31] MEDS: cefTRIAXone 1GM/50ML D5W 50 ML IV SCH (10:33)
[2020-10-31] MEDS: MORPHINE SULFATE INJECTION 2 MG/ML SYRG IV PRN ×2 (11:16→20:27)
[2020-10-31 12:43] VITALS: BP 135/97
[2020-10-31 17:00] VITALS: BP 128/89
[2020-10-31] MEDS: FOLIC ACID 1 MG, MAGNESIUM SULF SDV 50% 8 MEQ, THIAMINE INJ 100 MG in SODIUM CHLORIDE 0... INJ SCH (17:26)
[2020-10-31 21:50] VITALS: BP 123/89
[2020-11-01] MEDS: SOD CHL 0.9%/ KCL 40MEQ 1,000 ML IV SCH ×3 (00:15→20:17)
[2020-11-01 04:51] VITALS: BP 110/73
[2020-11-01] MEDS: metroNIDAZOLE 500MG/100ML 100 ML IV SCH ×2 (05:51→17:26)
[2020-11-01] MEDS: methylPREDNISolone SOD SUCC 40 MG/ML VL IV SCH (05:51)
[2020-11-01 07:07] LABS: Mean Corpuscular Volume 89.3 fL (80.0-100.0)
[2020-11-01 07:09] LABS: Hematocrit 37.2 % (36.0-46.0); Hemoglobin 11.7 g/dL (12.2-16.2); Mean Corpuscular Hgb Conc. 31.4 g/dL (32.0-36.0); Red Blood Cells 4.16 10^6/uL (4.0-5.20); Red Cell Distribution Width 17.3 % (11.8-14.3)
[2020-11-01 07:14] LABS: INR 1.62 (0.9-1.15)
[2020-11-01 07:19] LABS: Potassium 4.1 mmol/L (3.5-5.1)
[2020-11-01 07:26] LABS: Albumin 1.6 g/dL (3.4-5.0); Bilirubin, Total 6.4 mg/dL (0.2-1.0); Total Protein 5.2 g/dL (6.4-8.2)
[2020-11-01 07:38] LABS: White Blood Cell 34.8 10^3/uL (4.4-10.8)
[2020-11-01] MEDS ORDERED: fentaNYL CITRATE 100 MCG/2 ML VL IV ONE (07:38)
[2020-11-01 07:39] LABS: Basophils % (manual) 0 (0.0-2.0); Blast Cells 0; Eosinophils % (manual) 0 (0-7); Metamyelocytes % 0; Myelocytes % 0; Promyelocytes % 0; Reactive Lymphocytes 0
[2020-11-01 07:53] LABS: Band Neutrophils % (manual) 6; Lymphocytes % (manual) 4 (10.0-50.0); Monocytes % (manual) 4 (0-12)
[2020-11-01] MEDS ORDERED: PHYTONADIONE (VIT K)10 MG/ML 1ML VIAL SUBCUT ONE (08:15)
[2020-11-01 09:00] VITALS: BP 126/96
[2020-11-01] MEDS ORDERED: LIDOCAINE VISCOUS 2% 15ML UD ONE (10:12)
[2020-11-01] MEDS ORDERED: MEPERIDINE HCL (25 MG/ML) 1ML VIAL ONE (10:13)
[2020-11-01] MEDS ORDERED: MIDAZOLAM HCL 2MG/2ML 2ml VIAL (1mg/ml) ONE (10:14)
[2020-11-01] MEDS ORDERED: ONDANSETRON HCL 4 MG/2 ML VIAL IV PRN (10:30)
[2020-11-01] MEDS ORDERED: MIDAZOLAM HCL 2MG/2ML 2ml VIAL (1mg/ml) IV PRN (10:30)
[2020-11-01] MEDS ORDERED: LABETALOL HCL 5 MG/ML 4ML SYRINGE IV PRN (10:30)
[2020-11-01] MEDS ORDERED: MORPHINE SULFATE 4 MG/ML SYR/VIAL IV PRN (10:30)
[2020-11-01] MEDS ORDERED: ePHEDrine SULFATE 50 MG/ML AMP IV PRN (10:30)
[2020-11-01] MEDS ORDERED: HYDROmorphone HCL 2 MG/ML VL IV PRN (10:30)
[2020-11-01] MEDS ORDERED: DexAMETHasone SOD PHOS 10MG/1ML VIAL INJ ONE (10:50)
[2020-11-01] MEDS ORDERED: PROPOFOL 10 MG/ML 20 ML IV ONE (10:50)
[2020-11-01 13:00] VITALS: BP 127/89
[2020-11-01] MEDS: cefTRIAXone 1GM/50ML D5W 50 ML IV SCH (13:26)
[2020-11-01] MEDS: NICOTINE 21MG/24 HR TOPICAL PATCH TD SCH (13:27)
[2020-11-01] MEDS: MORPHINE SULFATE INJECTION 2 MG/ML SYRG IV PRN (14:08)
[2020-11-01 17:00] VITALS: BP 125/90
[2020-11-01] MEDS: FOLIC ACID 1 MG, MAGNESIUM SULF SDV 50% 8 MEQ, THIAMINE INJ 100 MG in SODIUM CHLORIDE 0... INJ SCH (17:19)
[2020-11-01] MEDS: LORazepam 2MG/ML-1ML VIAL IV PRN (20:17)
[2020-11-01 22:00] VITALS: BP 113/89
[2020-11-02] MEDS: metroNIDAZOLE 500MG/100ML 100 ML IV SCH ×3 (02:00→18:09)
[2020-11-02 05:00] VITALS: BP 111/73
[2020-11-02] MEDS: SOD CHL 0.9%/ KCL 40MEQ 1,000 ML IV SCH ×2 (05:16→16:15)
[2020-11-02 07:17] LABS: Albumin 1.6 g/dL (3.4-5.0); Calcium 7.8 mg/dL (8.5-10.1); Hemoglobin 12.1 g/dL (12.2-16.2); Magnesium 1.6 mg/dL (1.6-2.6); Mean Corpuscular Hemoglobin 28.3 pg (28.0-32.0); Mean Corpuscular Hgb Conc. 30.1 g/dL (32.0-36.0); Mean Corpuscular Volume 93.8 fL (80.0-100.0); Potassium 4.1 mmol/L (3.5-5.1); Red Blood Cells 4.27 10^6/uL (4.0-5.20); Red Cell Distribution Width 18.1 % (11.8-14.3)
[2020-11-02 07:20] LABS: INR 1.59 (0.9-1.15)
[2020-11-02 07:23] LABS: BUN/Creatinine Ratio 33.3; Bilirubin, Total 6.4 mg/dL (0.2-1.0); Phosphorus 1.4 mg/dL (2.5-4.90); Total Protein 5.2 g/dL (6.4-8.2); White Blood Cell 35.5 10^3/uL (4.4-10.8)
[2020-11-02 07:25] LABS: Basophils % (manual) 0 (0.0-2.0); Blast Cells 0; Eosinophils % (manual) 0 (0-7); Metamyelocytes % 0; Myelocytes % 0; Promyelocytes % 0; Reactive Lymphocytes 0
[2020-11-02 09:00] VITALS: BP 102/75
[2020-11-02] MEDS: PIPERACILLIN-TAZOB 3.375GM 100 ML IV SCH ×2 (09:22→19:14)
[2020-11-02] MEDS: NICOTINE 21MG/24 HR TOPICAL PATCH TD SCH (09:23)
[2020-11-02] MEDS: prednisoLONE 15 MG/5 ML ORAL UD PO SCH (11:01)
[2020-11-02 13:00] VITALS: BP 97/68
[2020-11-02] MEDS ORDERED: NEUTRA-PHOS TABLET PO ONE (13:00)
[2020-11-02] MEDS ORDERED: FOLIC ACID 1 MG, MAGNESIUM SULF SDV 50% 8 MEQ, THIAMINE INJ 100 MG in SODIUM CHLORIDE 0... INJ SCH (13:00)
[2020-11-02] MEDS ORDERED: MAGNESIUM OXIDE 400 MG TAB PO ONE (13:00)
[2020-11-02] MEDS ORDERED: POTASSIUM PHOSPHATE 26.4 MEQ in SODIUM CHL 0.9% 100 ML IV ONE (13:00)
[2020-11-02] MEDS: MAGNESIUM SULFATE 1GM/100ML 100 ML IV SCH ×2 (13:13→14:40)
[2020-11-02 13:31] LABS: Band Neutrophils % (manual) 17; Lymphocytes % (manual) 2 (10.0-50.0); Monocytes % (manual) 2 (0-12)
[2020-11-02] MEDS ORDERED: ALBUMIN 25% 100 ML IV ONE (17:00)
[2020-11-02] MEDS: MORPHINE SULFATE INJECTION 2 MG/ML SYRG IV PRN (17:02)
[2020-11-02 17:10] VITALS: BP 105/72
[2020-11-02] MEDS ORDERED: FUROSEMIDE 20 MG/2 ML VIAL IV ONE (19:00)
[2020-11-02] MEDS: SODIUM BICARBONATE 650 MG TAB PO SCH (22:02)
[2020-11-02 22:06] VITALS: BP 99/67
[2020-11-03] MEDS: PIPERACILLIN-TAZOB 3.375GM 100 ML IV SCH ×2 (00:35→09:26)
[2020-11-03] MEDS: metroNIDAZOLE 500MG/100ML 100 ML IV SCH ×2 (02:27→09:26)
[2020-11-03] MEDS: MORPHINE SULFATE INJECTION 2 MG/ML SYRG IV PRN ×2 (02:32→10:24)
[2020-11-03 05:00] VITALS: BP 106/72
[2020-11-03 06:32] LABS: INR 1.68 (0.9-1.15)
[2020-11-03 06:45] LABS: Potassium 3.7 mmol/L (3.5-5.1)
[2020-11-03 06:55] LABS: Albumin 1.8 g/dL (3.4-5.0); BUN/Creatinine Ratio 22.2; Bilirubin, Total 7.2 mg/dL (0.2-1.0); Calcium 6.7 mg/dL (8.5-10.1)
[2020-11-03 07:03] LABS: Albumin 1.9 g/dL (3.4-5.0); Bilirubin, Direct 5.3 mg/dL (0-0.2); Bilirubin, Total 7.7 mg/dL (0.2-1.0); Total Protein 4.9 g/dL (6.4-8.2)
[2020-11-03 07:06] LABS: Hematocrit 38.5 % (36.0-46.0); Hemoglobin 11.5 g/dL (12.2-16.2); Mean Corpuscular Hgb Conc. 29.9 g/dL (32.0-36.0); Mean Corpuscular Volume 96.9 fL (80.0-100.0); Red Blood Cells 3.98 10^6/uL (4.0-5.20); Red Cell Distribution Width 18.4 % (11.8-14.3); White Blood Cell 29.8 10^3/uL (4.4-10.8)
[2020-11-03 07:12] LABS: Basophils % (manual) 0 (0.0-2.0); Blast Cells 0; Metamyelocytes % 0; Myelocytes % 0; Promyelocytes % 0; Reactive Lymphocytes 0
[2020-11-03 09:00] VITALS: BP 105/74
[2020-11-03 09:10] LABS: Eosinophils % (manual) 3 (0-7); Lymphocytes % (manual) 8 (10.0-50.0); Monocytes % (manual) 3 (0-12)
[2020-11-03 09:11] LABS: Band Neutrophils % (manual) 25
[2020-11-03] MEDS: SODIUM BICARBONATE 650 MG TAB PO SCH (09:27)
[2020-11-03] MEDS: NICOTINE 21MG/24 HR TOPICAL PATCH TD SCH (09:29)
[2020-11-03] MEDS: prednisoLONE 15 MG/5 ML ORAL UD PO SCH (09:29)
[2020-11-03 13:14] VITALS: BP 105/72
== END 2020-11-03 14:53 | disposition home or self-care (01) | DRG 280 ==
LOC: ER 11:29 → TELE 14:33 → DOU IN ICU 10-28 16:46 → ICU IN DOU 10-30 14:00 → DOU IN ADS 10-30 15:07 → EAST 11-01 01:23 → TELE-E-ADS 11-01 01:30 → TELE-WESTW 11-01 16:23
PROVIDERS: ADMIT Nurse Practitioner Acute Care; ATTEND Internal Medicine
PROC: 30233N1 Transfusion of Nonautologous Red Blood Cells into Peripheral Vein, Percutaneous Approach (ICD-10-PCS; principal; 2020-10-26)
PROC: 30233K1 Transfusion of Nonautologous Frozen Plasma into Peripheral Vein, Percutaneous Approach (ICD-10-PCS; 2020-10-26)
PROC: 05H933Z Insertion of Infusion Device into Right Brachial Vein, Percutaneous Approach (ICD-10-PCS; 2020-10-28)
PROC: B54MZZA Ultrasonography of Right Upper Extremity Veins, Guidance (ICD-10-PCS; 2020-10-28)
PROC: 0DJ08ZZ Inspection of Upper Intestinal Tract, Via Natural or Artificial Opening Endoscopic (ICD-10-PCS; 2020-11-01)
PROC: 0DJD8ZZ Inspection of Lower Intestinal Tract, Via Natural or Artificial Opening Endoscopic (ICD-10-PCS; 2020-11-01 10:08)
DX: K70.11 Alcoholic hepatitis with ascites (principal); K70.31 Alcoholic cirrhosis of liver with ascites; N17.0 Acute kidney failure with tubular necrosis; R57.1 Hypovolemic shock; E43 Unspecified severe protein-calorie malnutrition; K55.069 Acute infarction of intestine, part and extent unspecified; E87.6 Hypokalemia; D68.9 Coagulation defect, unspecified; F10.20 Alcohol dependence, uncomplicated; K64.4 Residual hemorrhoidal skin tags; K64.8 Other hemorrhoids; T38.0X5A Adverse effect of glucocorticoids and synthetic analogues, initial encounter; D64.9 Anemia, unspecified; F17.210 Nicotine dependence, cigarettes, uncomplicated; Z82.49 Family history of ischemic heart disease and other diseases of the circulatory system; K29.70 Gastritis, unspecified, without bleeding; Z79.899 Other long term (current) drug therapy; Z20.822 Contact with and (suspected) exposure to COVID-19; D62 Acute posthemorrhagic anemia
CPT/HCPCS: 36415; 43235; 45378; 71045; 74177; 76700; 80053; 80076; 80307; 80320; 81001; 82105; 82140; 82150; 82270; 83605; 83690; 83735; 84100; 84132; 84443; 84484; 84702; 85007; 85014; 85018; 85027; 85384; 85610; 85730; 86850; 86900; 86901; 86920; 87040; 87081; 87086; 87426; 93005; 96361; 96365; 96375; 99291; C9113; G0378; J0696; J1100; J2001; J2250; J2543; J2704; J3430; J3490; J7060; J7510; P9047

== ENCOUNTER 2020-11-14 09:32 | Emergency (ER) | payer MEDICAID ==
[2020-11-14 10:20] LABS: Hematocrit 27.8 % (36.0-46.0); Mean Corpuscular Hemoglobin 28.2 pg (28.0-32.0); Mean Corpuscular Hgb Conc. 32.5 g/dL (32.0-36.0); Mean Corpuscular Volume 86.8 fL (80.0-100.0)
[2020-11-14 10:24] LABS: INR 2.41 (0.9-1.15); Partial Thromboplastin Time 40.4 sec (23.0-31.2)
[2020-11-14 10:28] LABS: White Blood Cell 55.6 10^3/uL (4.4-10.8)
[2020-11-14 10:29] LABS: Basophils % (manual) 0 (0.0-2.0); Blast Cells 0; Myelocytes % 0; Promyelocytes % 0; Reactive Lymphocytes 0
[2020-11-14 10:42] LABS: Albumin 1.5 g/dL (3.4-5.0); Anion Gap 12 (5-15); Blood Urea Nitrogen 17 mg/dL (7-18); Calcium 8.1 mg/dL (8.5-10.1); Carbon Dioxide 20 mmol/L (21-32); Chloride 111 mmol/L (98-107); Glucose 85 mg/dL (74-106); Magnesium 1.5 mg/dL (1.6-2.6); Potassium 3.2 mmol/L (3.5-5.1); Sodium 143 mmol/L (136-145)
[2020-11-14 10:45] LABS: Alanine Aminotransferase 13 U/L (13-56); Alkaline Phosphatase 597 U/L (45-117); Aspartate Aminotransferase 44 U/L (15-37); BUN/Creatinine Ratio 38.6; Bilirubin, Total 16.5 mg/dL (0.2-1.0); Blood Alcohol < 3.0 mg/dL (0-5); GFR African American 212 mL/min; GFR Non-African American 175 mL/min; Total Protein 4.8 g/dL (6.4-8.2)
[2020-11-14] MEDS ORDERED: POTASSIUM CHL 20MEQ/100ML 100 ML IV ONE (10:45)
[2020-11-14 10:47] LABS: Band Neutrophils % (manual) 14; Eosinophils % (manual) 1 (0-7); Lymphocytes % (manual) 6 (10.0-50.0); Metamyelocytes % 3; Monocytes % (manual) 1 (0-12)
[2020-11-14] MEDS ORDERED: POTASSIUM CHLORIDE 20 MEQ, LIDOCAINE 1% (LOCAL ANESTH.) 2 ML in SODIUM CHL 0.9% 100 ML IV ONE (11:15)
[2020-11-14] MEDS ORDERED: LINEZOLID 600MG/300ML 300 ML IV STA (11:29)
[2020-11-14] MEDS ORDERED: PIPERACILLIN-TAZOB 3.375GM 100 ML IV ONE (11:30)
[2020-11-14 11:40] LABS: Lactic Acid w/Reflex 4.9 mmol/L (0.4-2.0)
[2020-11-14 16:21] VITALS: BP 100/61
== END 2020-11-14 16:30 | disposition short-term general hospital (02) ==
LOC: EDBD 09:32 → ER 09:32
DX: A41.9 Sepsis, unspecified organism (principal); K74.60 Unspecified cirrhosis of liver; R06.03 Acute respiratory distress; F17.210 Nicotine dependence, cigarettes, uncomplicated; Z20.822 Contact with and (suspected) exposure to COVID-19
CPT/HCPCS: 36415; 49083; 71045; 74176; 76942; 80053; 80320; 82140; 83605; 83735; 83880; 84484; 84560; 85007; 85027; 85610; 85730; 87040; 87205; 87426; 89051; 93005; 96361; 96365; 96367; 99291; C1729; C9803; J2001; J2020; J2543; J3480; U0003; 10022